=== PATIENT | female | born 1990 | race Caucasian/White ===

== ENCOUNTER 2019-03-26 15:16 | Emergency (ER) | payer MEDICAID, OTHER | END 2019-03-26 19:51 | disposition home or self-care (01) | LOC: FTE 15:16 | DX: M94.0 Chondrocostal junction syndrome [Tietze] (principal) | CPT/HCPCS: 71046; 93005; 99283-25 ==

== ENCOUNTER 2019-08-10 05:26 | Day surgery (SDC) | payer MEDICAID ==
[2019-08-10] MEDS: LACTATED RINGER'S 1,000 ML IV (06:00)
[2019-08-10] MEDS ORDERED: BUPIVACAINE 0.5%/EPI (SDV) 30 ML INJ (06:59)
[2019-08-10] MEDS ORDERED: CEFAZOLIN 1 GM INJ (07:20)
[2019-08-10] MEDS ORDERED: DESFLURANE 15 MIN (07:20)
[2019-08-10] MEDS ORDERED: MIDAZOLAM 1 MG/ML 2 ML INJ (07:23)
[2019-08-10] MEDS ORDERED: FENTAnyl 50 MCG/ML VIAL (07:23)
[2019-08-10] MEDS ORDERED: SUCCINYLCHOLINE CHLORIDE 100 MG/5 ML SYG IV (07:24)
[2019-08-10] MEDS ORDERED: ROCURONIUM 50 MG INJ (07:24)
[2019-08-10] MEDS ORDERED: PROPOFOL 20 ML ×2 (07:24→08:17)
[2019-08-10] MEDS ORDERED: LIDOCAINE 100 MG SYRINGE (07:24)
[2019-08-10] MEDS ORDERED: ONDANSETRON 4 MG INJ (07:28)
[2019-08-10] MEDS ORDERED: DEXAMETHASONE 4 MG/ML 5 ML INJ (07:28)
[2019-08-10] MEDS ORDERED: IPRATROPIUM (NEB) 0.5 MG/2.5 ML AMP HHN (07:30)
[2019-08-10] MEDS ORDERED: DIPHENHYDRAMINE 50 MG INJ IV (07:30)
[2019-08-10] MEDS: BUPIVACAINE 0.5%/EPI (SDV) 30 ML INJ INJ (07:30)
[2019-08-10] MEDS ORDERED: LABETALOL HCL 20MG INJ IV (07:30)
[2019-08-10] MEDS ORDERED: MEPERIDINE 25 MG INJ IV (07:30)
[2019-08-10] MEDS ORDERED: OXYCODONE/ACETAMINOPHEN (5/325) TAB PO (07:30)
[2019-08-10] MEDS ORDERED: ALBUTEROL 0.083% (NEB) 2.5 MG/3 ML AMP HHN (07:30)
[2019-08-10] MEDS ORDERED: EPHEDrine 25 MG/5 ML SYG IV (07:30)
[2019-08-10] MEDS ORDERED: hydrALAzine 20 MG INJ IV (07:30)
[2019-08-10] MEDS ORDERED: FENTAnyl 50 MCG/ML VIAL IV ×2 (07:30)
[2019-08-10] MEDS ORDERED: HYDROmorphONE 1 MG/5 ML IV SYRINGE IV ×3 (07:30)
[2019-08-10] MEDS: CEFAZOLIN 2 GM/50 ML (PMX) 50 ML IVPB (07:45)
[2019-08-10] MEDS: FENTAnyl 50 MCG/ML VIAL IV (09:07)
[2019-08-10] MEDS: ONDANSETRON 4 MG INJ IV (09:07)
[2019-08-10] MEDS: OXYCODONE/ACETAMINOPHEN (5/325) TAB PO (10:14)
== END 2019-08-10 11:12 | disposition home or self-care (01) ==
LOC: SDS 05:26
DX: Z30.2 Encounter for sterilization (principal)
CPT/HCPCS: 58661; 88302